=== PATIENT | male | born 1985 | race Caucasian/White ===

== ENCOUNTER 2018-11-02 14:37 | Emergency (ER) | payer MEDICAID ==
[~2018-11-02] VITALS: Ht 167.6 cm; Wt 78.5 kg
[2018-11-02 14:41] VITALS: Ht 167.6 cm; Wt 78.5 kg
[2018-11-02 16:26] VITALS: BP 133/71
== END 2018-11-02 16:26 | disposition home or self-care (01) ==
LOC: ED 14:37
DX: J11.1 Influenza due to unidentified influenza virus with other respiratory manifestations (principal)
CPT/HCPCS: 87804